=== PATIENT | female | born 1980 | race Caucasian/White ===

== ENCOUNTER → 2018-01-10 | Outpatient (CLI) | payer BC ==
[~2018-01-10] VITALS: Ht 160 cm; Wt 98.0 kg
[~2018-01-10] MED LIST: LEVO25TA55 PO; LORA10TA68 PO; ONDA4TAB7 PO; SINCALIDE 1.96 MCG in IV NORMAL SALINE 50ML 30 ML IV ONE
--- NOTE | 2018-01-10 11:52 | RAD ---
HEPATOBILIARY SCAN WITH EJECTION FRACTION 01/10/2018 11:46 AM History: Abdominal pain x 1 month Procedure: Serial static images are obtained of the liver and biliary system in the frontal projection following IV administration of 5.5 mCi of Technetium 99m Choletec. After filling of the gallbladder, 1.96 mcg of sincalide were infused over 30 minutes and dynamic imaging continued over this period. The gallbladder ejection fraction was calculated. Findings: There is prompt hepatic clearance of tracer from the blood pool. There is homogeneous distribution throughout the liver. The gallbladder ejection fraction measures 28% (normal gallbladder EF is 35% or greater). IMPRESSION: 1. The cystic duct and common bile duct are patent. Negative for acute cholecystitis. 2. Mildly reduced gallbladder ejection fraction measuring 28 percent. In the appropriate setting finding, can be associated with chronic cholecystitis or gallbladder dyskinesia. Electronically signed by: Dave Lyon MD (01/10/2018 11:48 AM) [id number]
== END | disposition home or self-care (01) ==
LOC: NM 08:52
PROVIDERS: ATTEND Internal Medicine Gastroenterology
DX: R10.84 Generalized abdominal pain (principal)
CPT/HCPCS: 78226; 96374; 96375; A9537; J2805